=== PATIENT | male | born 1950 | race Caucasian/White ===

== ENCOUNTER 2019-09-27 09:38 | Emergency (ER) | payer OTHER ==
[~2019-09-27] VITALS: Ht 172.7 cm; Wt 77.3 kg
[2019-09-27 10:03] VITALS: Ht 172.7 cm; Wt 77.3 kg
[2019-09-27] MEDS ORDERED: FLOMAX0.4 MG PO (10:04)
[2019-09-27] MEDS ORDERED: OXYBUTYNIN CHLOR5 MG PO (10:04)
[2019-09-27] MEDS ORDERED: LIPITOR40 MG PO (10:04)
[2019-09-27] MEDS ORDERED: METFORMIN HCL500 M1 PO (10:04)
[2019-09-27 10:29] LABS: CALC OSMOLALITY 278 mosm/kg (275-300); CALCIUM 8.8 mg/dL (8.5-10.1); CARBON DIOXIDE 27.5 mmol/L (21.0-32.0); CHLORIDE - SERUM 95 mmol/L (98-107); POTASSIUM - SERUM 4.5 mmol/L (3.5-5.1); SODIUM 130 mmol/L (136-145); UREA NITROGEN 18 mg/dL (7-18); eGFR NON AFRICAN AMERICAN 79 mL/min (90-120)
[2019-09-27 10:32] LABS: GLUCOSE 386 mg/dL (74-106)
[2019-09-27 10:38] LABS: APTT 25.6 SECONDS (22.8-39.4); INR 0.98 (0.85-1.17)
[2019-09-27 10:44] LABS: ALBUMIN 3.1 g/dL (3.4-5.0); ALKALINE PHOSPHATASE 112 U/L (30-120); ALT (SGPT) 31 U/L (10-68); BILIRUBIN - TOTAL 0.38 mg/dL (0.2-1.3); CKMB 0.4 U/L (0.0-3.6); CREATINE KINASE 26 UL (21-232); MAGNESIUM - SERUM 1.8 mg/dL (1.8-2.4); PROTEIN - SERUM 7.2 g/dL (6.4-8.2)
[2019-09-27 10:45] LABS: TROPONIN-I < 0.017 ng/mL (0.000-0.060)
[2019-09-27 10:53] LABS: HEMATOCRIT 49.2 % (42.0-54.0); HEMOGLOBIN 16.5 g/dL (13.5-17.5); LYMPHOCYTES 32.3 % (15-50); MCH 30.3 pg (26.0-34.0); MCHC 33.5 g/dL (31.0-37.0); MCV 90.3 fL (80.0-100.0); MEAN PLATELET VOLUME 10.4 fL (7.4-10.4); NEUTROPHILS 54.8 % (40-80); PLATELET COUNT 144 10x3/uL (130-400); RBC 5.45 10x6/uL (4.20-6.10); RDW 12.8 % (11.5-14.5); WBC 3.7 10x3/uL (4.8-10.8)
[2019-09-27] MEDS ORDERED: TYLENOL ARTHRI650 MG PO (12:59)
[2019-09-27] MEDS ORDERED: STERAPRED 5MG 65 M1 PO (12:59)
[2019-09-27] MEDS ORDERED: VENTOLIN HFA [SP8 GM INH (12:59)
[2019-09-27] MEDS ORDERED: ZYRTEC10 MG PO (12:59)
[2019-09-27] MEDS ORDERED: MOBIC7.5 MG PO (12:59)
[2019-09-27 13:49] VITALS: BP 132/81
== END 2019-09-27 13:50 | disposition home or self-care (01) ==
LOC: D.ER 09:38
PROVIDERS: Family Medicine
DX: U07.1 COVID-19 (principal); R05 Cough; E11.65 Type 2 diabetes mellitus with hyperglycemia; Z79.84 Long term (current) use of oral hypoglycemic drugs; M79.10 Myalgia, unspecified site; R53.1 Weakness; R07.9 Chest pain, unspecified